=== PATIENT | male | born 1985 | race Caucasian/White ===

== ENCOUNTER 2016-07-28 14:38 | Emergency (ER) | payer OTHER ==
[~2016-07-28] VITALS: Ht 177.8 cm; Wt 93.2 kg
[2016-07-28 14:40] VITALS: BP 160/94; PULSE 69; RESP 16; O2SAT 100
[2016-07-28] MEDS ORDERED: HYDROmorphone 1 mg/mL Inj IVPUSH PRN (15:05)
[2016-07-28] MEDS ORDERED: Ondansetron 2 mg/mL 2 mL Inj IVPUSH ONE (15:05)
--- NOTE | 2016-07-28 15:05 | ED.REPORT ---
HPI-Extremity Problem Upper Date of Service July 28, 2016 ED Provider: Galdino Perez MD 30 y/o male with no pertinent hx presents to the ED complaining of right shoulder pain, onset just prior to arrival. He reports he fell off a plank and twisted his shoulder. He believes it may be dislocated. He has never dislocated it before. The pt denies using any alcohol or drugs today. Nursing Notes Stated Complaint: DISLOCATED SHOULDER Chief Complaint: Extremity Trauma Nursing Notes Reviewed: Yes ([facility] not reconciled) Allergies: Coded Allergies: No Known Allergies (Unverified , 07/28/16) Scheduled PRN Hydrocodone-Acetaminophen 5-325 mg (Hydrocodone-Acetaminophen 5-325 mg) 1 Each Tablet 1-2 TABLET PO Q4H PRN PRN For Pain General Time Seen by MD: 15:03 Chief Complaint Shoulder injury right Hx Obtained From: Patient Arrived By: Walk-in Onset Occurred: Just prior to arrival Symptom Duration: Since onset Caused by: Fall from height... Location: : Shoulder right Quality: Painful Severity: Current: Severe Severity: Maximum: Severe Recent Healthcare: No recent doctor visit Similar Sx Previous: No Review of Systems Musculoskeletal: Reports: Joint pain (RIGHT SHOULDER) Complete sys rev & neg: except as marked. Physical Exam Initial Vital Signs Vital Signs (First) Date Time Temp Pulse Resp B/P Pulse Ox O2 Delivery O2 Flow Rate FiO2 07/28/16 14:40 36.2 69 16 160/94 100 Room Air Initial VS: Reviewed, Vital signs normal (mild HTN (in severe pain)) Head / Eyes: Atraumatic, Normocephalic, PERRL ENT: Mucous membranes moist, Conjunctiva normal, No scleral icterus Neck: Supple, Non-tender, Full range of motion Respiratory: Breath sounds normal, Clear to auscultation, No respiratory distress Cardiovascular: Regular rate & rhythm, Heart sounds normal, Intact distal pulses Abdomen / GI: Soft, Non-tender, No guarding, No rebound, No distention Lower Extremities: Vascular intact, Neuro intact, No swelling, No tenderness Skin: Warm, Dry, No cyanosis Neurologic: Alert, Oriented, Nonfocal Psychiatric: Mood/affect normal, Behavior normal, Normal thought content General/Constitutional: Awake, Alert, Cooperative, Not toxic appearing Distress / Hydration: Positive: Distress moderate Pt is in severe pain and leaning forward while holding his right shoulder. Upper Extremity / MS: Non-tender, Neurologic intact, Vascular intact Step off deformity of right shoulder consistent with the injury. Intact sensation over the deltoid. Interpretation & Diagnostics X-Ray Interpretation Xray Interpretation: IMPRESSION: 1. Anterior dislocation of the right humeral head with respect to the glenoid. 2. Mild heterogeneity of the anterior glenoid may represent a bony Bankart fracture. Dedicated CT or MR imaging would be helpful for better evaluation. Dictated by: León Emanuel M.D. on 07/28/2016 at 14:58 Approved by: León Emanuel M.D. on 07/28/2016 at 14:59 X-Ray Ordered: Shoulder right Interpretation / Wet Read by: Interpret - Radiologist Procedures Intra-Articular Injection I performed an intra-articular injection of bupivacaine the right glenohumeral joint, as the patient's shoulder was dislocated procedure was tolerated with no [place] location Injection Performed by: ED physician Indication: Painful joint Consent / Setup / Site Prep: Informed consent provided Skin Preparation Agent: Hibiclens - Chlorhexidine Joint Injected: Shoulder right Local Anesthesia: Bupivacaine 0.5% Needle Gauge: 25 Post-Procedure / Complications: Dressing placed, No complications, Condition improved, Tolerated procedure well, Patient stable Reduction Dislocated Shoulder The patient was comfortable enough that I was able to help gently reduce the anterior shoulder at the bedside, using some mild gentle traction, scapular rotation. Procedural sedation was not required. The procedure was well-tolerated was done slowly, and successfully with clinical resolution, and follow-up x-ray demonstrated and confirmed successful reduction. Procedure Performed by: ED physician Consent / Setup: Informed consent provided, Consent from patient Which Shoulder and Technique: Right shoulder, Scapular manipulation, Other Neurovascular: Intact pre-procedure, Intact post-procedure Post-Procedure / Complications: Reduced per examination, X-ray disloc reduced, Shoulder immobilized (placed in a sling), Condition improved, Tolerated procedure well, Patient stable Re-Eval/Medical Decision Med Decision/Clinical Course This is a 30-year-old right-hand dominant male oates who presents with acute shoulder pain and probable first-time dislocation. It happened as he twisted twisted as he was falling having lost balance. However there was no end direct trauma in the end. Presents with severe pain,, no numbness weakness paresthesias. On exam his clinical findings of a step-off deformity consistent with shoulder dislocation and his severe pain. Had intact sensation over the deltoid, arms are neurovascularly intact, no additional injuries, no open wounds. He received an IV titrated pain medicine. I performed an intra-articular injection of bupivacaine with marked relief. X-ray confirmed dislocation, and at the bedside I was able used gentle traction to reduce it without requiring procedural sedation. The procedure was well-tolerated, there are no complications and clinical resolution. Postprocedure intact sensation of the deltoid may present, and arm remain neurovascularly intact, postprocedure films demonstrate a successful reduction, also suggest a mild Hill-Sachs deformity. The patient is being discharged in a sling, routine precautions, when necessary ibuprofen and hydrocodone and a referral to the on-call orthopedist for follow- up. He is discharged in much improved condition. Source of Hx: Old records Re-Evaluation/Progress #1: Time of Eval: 16:01 Patient Status: Condition improved Re-Evaluation/Progress Note: Rechecked pt. Discussed imaging results and reduced the shoulder dislocation. Re-Evaluation/Progress #2: Time of Eval: 16:58 Patient Status: Condition improved Re-Evaluation/Progress Note: Rechecked pt. Discussed imaging results and diagnosis. Informed the pt of the plan to discharge. Pt understands and agrees with plan. F/U instructions and RTER warning given. All questions addressed. Differential Diagnosis: Positive: Fracture (Hill-Sachs deformity), Shoulder disloc ant, Negative: Abrasion, Abscess, Amputation, Arterial occlus/ischemia, Avulsion injury, Colles' fracture, Compartment syndrome, Contusion, Neurovascular injury Counseled Regarding: Diagnosis, Lab results, Need for follow-up, When/why to return to ED Safety Concerns: Unable to care for self Discharge & Departure Impression: Primary Impression: Closed dislocation of right shoulder Encounter type: initial encounter Qualified Code: S43.004A - Unspecified dislocation of right shoulder joint, initial encounter Disposition: Home Discharge Condition All VS Reviewed: Yes Condition: Stable Patient Instructions: Shoulder Dislocation (ED) Additional Instructions: 1. You dislocated her right shoulder today. We were able to reduce it in the emergency department without difficulty. 2. Recommend that he do follow up with an orthopedist-once you have stretched and torn the ligaments of the shoulder, it is likely that it some point in the future he will re-dislocate the shoulder. The orthopedist can help deal with the physical therapy and revision, and occasionally in some cases surgery may be helpful. 3. Use the sling for comfort for a few days. Then remove. No heavy lifting. 4. Take ibuprofen 400 mg 3 times a day for soreness or pain. 5. If needed take hydrocodone/APAP 07/22/2024 one to 2 up to every 4-6 hours for pain. Note use this for more severe pain: It does contain a narcotic. No driving for at least 4-6 hours after taking. Use sparingly, and only if needed. Referrals: Mihir Cleary MD (PCP) Shakir Correa MD Scribe Attestation Portions of this note were transcribed by Gibson Waldron. I, , personally performed the history, physical exam and medical decision-making;I reviewed and confirmed the accuracy of the information in the transcribed note. Signed by Cheyenne Mckenzie. 07/28/16 0532 copies to: Mihir Cleary MD; Shakir Correa MD, Matthew F MD July 28, 2016 15:05 Gibson Waldron July 28, 2016 15:22
[2016-07-28] MEDS ORDERED: Bupivacaine-MPF 0.5% 30 mL Inj ONE (15:16)
[2016-07-28] MEDS ORDERED: Bupivacaine 0.5% 50 mL Inj INFILTRATE ONE (15:20)
--- NOTE | 2016-07-28 16:00 | DRSVH ---
PROCEDURE: X-RAY RIGHT SHOULDER, MINIMUM TWO VIEWS ([id number]) INDICATIONS: pain TECHNIQUE: 2 views of the shoulder were acquired. COMPARISON: None. FINDINGS: Bones: There is anterior dislocation of the humeral head with respect to the glenoid. No displaced f ractures are appreciated. However, there is heterogeneity of the anterior glenoid on the axillary vi ew, suspicious for possible bony Bankart injury. Soft tissues: No suspicious soft tissue calcifications. IMPRESSION: 1. Anterior dislocation of the right humeral head with respect to the glenoid. 2. Mild heterogeneity of the anterior glenoid may represent a bony Bankart fracture. Dedicated CT o r MR imaging would be helpful for better evaluation. Dictated by: León Emanuel M.D. on 07/28/2016 at 14:58 Approved by: León Emanuel M.D. on 07/28/2016 at 14:59
[2016-07-28] MEDS ORDERED: HYDR-4003 PO (16:27)
--- NOTE | 2016-07-28 16:46 | DRSVH ---
PROCEDURE: X-RAY RIGHT SHOULDER, MINIMUM TWO VIEWS ([id number]) INDICATIONS: post reduction TECHNIQUE: 3 views of the shoulder were acquired. COMPARISON: [facility], CR, XR SHOULDER MIN 2VW RT, 07/28/2016, 15:40. FINDINGS: Bones: There has been interval reduction of the anterior shoulder dislocation. A small deformity is p resent on the posterior aspect of the humerus. Soft tissues: No suspicious soft tissue calcifications. IMPRESSION: Status post glenohumeral joint reduction with probable Hill-Sachs deformity. Dictated by: Deepthi Oliva M.D. on 07/28/2016 at 16:43 Approved by: Deepthi Oliva M.D. on 07/28/2016 at 16:44
[2016-07-28 17:25] VITALS: BP 147/91; PULSE 67; RESP 18; O2SAT 99
== END 2016-07-28 17:27 | disposition home or self-care (01) ==
LOC: SED 14:38
DX: S43.014A Anterior dislocation of right humerus, initial encounter (principal); W17.89XA Other fall from one level to another, initial encounter; Y93.89 Activity, other specified; Y92.019 Unspecified place in single-family (private) house as the place of occurrence of the external cause; Y99.8 Other external cause status
CPT/HCPCS: 23650; 73030; 96374; 96375; 99284; J1170; J2405